=== PATIENT | male | born 1950 | race Caucasian/White ===

== ENCOUNTER 2016-09-04 14:04 | Emergency (ER) | payer MEDICARE, OTHER ==
[2016-09-04 14:40] LABS: Hematocrit 47.8 % (42.0-52.0); Hemoglobin 16.5 gm/dL (13.5-18.0); Mean Cell Volume 94.5 fl (78-100); Mean Corpuscular Hemoglobin 32.6 pg (27-31); Mean Corpuscular Hgb Conc 34.5 g/dl (32-36); Mean Platelet Volume 8.8 fl (6.0-9.5); Neutrophil # 7.5 K/mm3 (1.3-6.0); Platelet Count 264 K/mm3 (150-450); Red Blood Count 5.06 M/mm3 (4.7-6.0); Red Cell Distribution Width 13.3 % (11.5-14.0); White Blood Count 10.4 K/mm3 (4.0-10.5)
[2016-09-04 15:00] LABS: Albumin * 3.6 gm/dl (3.4-5.0); Anion Gap 19.1 mmol/L (6.8-13.8); Bilirubin, Total 0.7 mg/dL (0.0-1.1); Ca. Corrected For Albumin 9.2 mg/dL (8.4-10.2); Calcium * 9.2 mg/dL (7.9-10.9); Carbon Dioxide 22.2 mmol/L (24-32.6); Potassium 5.3 mmol/L (3.4-4.6); Total Protein 7.8 gm/dL (6.2-8.2); Troponin I 0.018 ng/ml (0.00-0.10)
[2016-09-04] MEDS ORDERED: ONDANSETRON HCL/PF 2 MG/ML VIAL IV ONE (15:50)
[2016-09-04] MEDS ORDERED: ONDANSETRON HCL/PF 2 MG/ML VIAL ONE (15:51)
[2016-09-04] MEDS ORDERED: FUROSEMIDE 10 MG/ML VIAL IV ONE (15:54)
[2016-09-04] MEDS ORDERED: FUROSEMIDE 10 MG/ML VIAL ONE (16:00)
[2016-09-04] MEDS ORDERED: traMADol HCL 50 MG TABLET PO ONE ×2 (17:41→17:49)
[2016-09-04] MEDS ORDERED: traMADol HCL 50 MG TABLET ONE ×2 (17:46→17:50)
--- NOTE | 2016-09-04 18:57 | ERNOTE ---
Dyspnea - Date Date of Service: 09/04/16 - General Time Seen by Provider: 09/04/16 14:25 Source: patient Exam Limitations: no limitations - Immun/Allergies/Home Medications Immunizations: IMMUNIZATION HX History of Influenza Vaccine Yes Hx Pneumococcal Vaccination Yes Allergies/Adverse Reactions: Allergies No Known Allergies Allergy (Verified 09/04/16 14:17) Home Medications: HOME MEDICATIONS Aspirin [Aspirin Chewable] 81 mg PO DAILY 05/09/16 [Last Taken Unknown] Atorvastatin Calcium [Lipitor] 80 mg PO DAILY 05/09/16 [Last Taken Unknown] Clopidogrel Bisulfate [Plavix] 75 mg PO DAILY 05/09/16 [Last Taken Unknown] Levothyroxine Sodium [Synthroid] 75 mcg PO DAILY 05/09/16 [Last Taken Unknown] Lisinopril [Zestril] 5 mg PO DAILY 05/09/16 [Last Taken Unknown] Metoprolol Tartrate [Lopressor] 100 mg PO BID 05/09/16 [Last Taken Unknown] Sulindac 200 mg PO BID PRN 05/09/16 [Last Taken Unknown] Terazosin HCl 2 mg PO HS 05/09/16 [Last Taken Unknown] Tramadol HCl [Rybix Odt] 50 mg PO QID PRN 05/09/16 [Last Taken Unknown] Venlafaxine HCl [Venlafaxine HCl ER] 225 mg PO DAILY 05/09/16 [Last Taken Unknown] - History of Present Illness Narrative: SOB increasing for the last week or so. he is not sure exactly how long this has been going on. No fever. SOB not at rest but noted with exertion. No acute onset. No CP. no leg swelling or PND. Has never had anything like this before. No abdominal pain. No calf pain. Severity: other - none at rest. Severe with exertion/ambulation. Initiating event: Reports: other - none Frequency of episodes: Reports: other - with exertion Modifying Factors - (Improves): Reports: rest Modifying Factors (Worsens): Reports: activity Associated Symptoms-Dyspnea: Denies: fever/chills, chest pain/discomfort, cough , leg/calf pain Prior Treatment: Denies: recently seen Review of Systems - Review of Systems Constitutional: Absent: fever Respiratory: Present: shortness of breath Cardiology: Absent: chest pain Gastrointestinal/Abdominal: Absent: abdominal pain Genitourinary: Absent: dysuria Neurological: Present: no symptoms reported All Other Systems: All systems neg except as marked - Patient's Past Medical History Patient History - Medical: Anxiety, Hypothyroidism Patient History - Cardiac/Respiratory: Hypertension, Hyperlipidemia Patient History - Cancer: No Hx of Cancer Patient History - Surgical Procedures: Coronary Bypass Surgery Patient History - Other: None - Social History Living Situations: alone Smoking Status: Heavy tobacco smoker Have you smoked in the past 12 months: Yes - Immunizations Hx Pneumococcal Vaccination: Yes History of Influenza Vaccine: Yes Physical Exam - Physical Exam General Appearance: Present: alert, no apparent distress Eye Exam: Normal inspection: bilateral, PERRL: bilateral Ears, Nose, Throat: Present: normal ENT inspection Neck: Present: normal inspection Respiratory: Present: no respiratory distress, normal breath sounds, lungs clear Cardiovascular/Chest: Present: regular rate, rhythm Gastrointestinal/Abdominal: Present: normal bowel sounds, nontender, nondistended, soft Back Exam: Absent: CVA tenderness (R), CVA tenderness (L) Extremity Exam: Present: other - No DVT findings or edema. no calf tendenress Neurological Exam: Absent: motor weakness Skin Exam: Absent: skin rash ED Progress - Results and Orders Patient's Lab Results:: I have reviewed the patient's lab results. - Vital Signs Patient's Vital Signs:: I have reviewed the patient's vital signs. Vital Signs: Vital Signs 09/04/16 09/04/16 09/04/16 14:13 14:23 15:03 Pulse Rate 66 66 65 Respiratory 19 14 Rate Blood Pressure 105/78 91/67 O2 Sat by Pulse 99 97 Oximetry 09/04/16 09/04/16 09/04/16 15:25 15:33 16:04 Pulse Rate 80 65 66 Respiratory 12 Rate Blood Pressure 96/60 98/61 O2 Sat by Pulse 82 L 98 Oximetry 09/04/16 09/04/16 16:16 18:34 Pulse Rate 68 65 Respiratory 13 16 Rate Blood Pressure 98/61 103/69 O2 Sat by Pulse 97 96 Oximetry - EKG EKG: NSR EKG read: Interp. by me EKG Comments: NSR rate 88. 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 No clear evidence of STEMI - X-Ray X-Ray #1 X-Ray: chest Interpretation: Reviewed by me X-ray Comments: I reviewed radiology report - Progress/Reassessment Chief Complaint: Dyspnea Progress Note-Subjective: 09/04/16 18:55 Patient Sx free at rest. New onset CHF, given lasix. elevated d-dimer but clinically unlikely to be PE, Cr too high for CT at this time. Also new nodules will need w/u. [facility] [place] [facility] for further evaluation and management. Departure Clinical Impression: Exertional shortness of breath, CHF (congestive heart failure) - Departure Condition: Fair
[2016-09-04 21:34] VITALS: BP 124/66
== END 2016-09-04 20:45 | disposition short-term general hospital (02) ==
LOC: ER 14:04
DX: I50.9 Heart failure, unspecified (principal); R06.02 Shortness of breath; F17.210 Nicotine dependence, cigarettes, uncomplicated

== ENCOUNTER 2016-09-25 17:36 | Emergency (ER) | payer MEDICARE, OTHER ==
--- OUTSIDE RECORDS SUMMARY | 2016-09-25 19:33 | XMS REPORT | Continuity of Care Document ---
:1950 Author Organization [facility] ([facility]) Address [address] [place] [address] Phone [phone] Care Team Providers Name Role Phone [facility] Primary Care Provider [phone] Source Comments This disclosure is being made pursuant to the Care Everywhere program, applicable federal and state laws, and may not contain all informaitonavailable regarding this patient.[facility] ([facility]) Active Allergies and Adverse Reactions No Known Allergies Current Medications Prescription Sig. Disp. Refills Start Date End Date Status traMADol 50 mg tablet Take 100 mg by Active mouth 4 times daily as needed. metoPROLol 100 mg tablet Take 1 Tab by 60 Tab 3 11/10/2011 Active mouth 2 times daily. Indications: cad sulindac 200 mg tablet Take 200 mg by Active mouth 2 times daily. aspirin 81 mg chewable Take 81 mg by Active tablet mouth daily. atorvastatin 80 mg tablet Take 80 mg by Active mouth daily. levothyroxine 75 mcg Take 75 mcg by Active tablet mouth every morning before breakfast. terazosin 2 mg capsule Take 2 mg by Active mouth at bedtime. venlafaxine 75 mg XR Take 225 mg by Active capsule mouth daily. mirtazapine 30 mg tablet Take 30 mg by Active mouth at bedtime. lisinopril 10 mg tablet Take 10 mg by Active mouth daily. clopidogrel 75 mg tablet Take 75 mg by Active mouth daily. furosemide 40 mg tablet Take 40 mg by Active mouth daily. cholecalciferol (VITAMIN Take 1,000 Units Active D3) 1,000 unit capsule by mouth daily. Active Problems Problem Noted Date Other specified anemias 04/16/2016 Other peripheral vascular disease(443.89) 04/16/2016 Carotid artery disease 11/06/2011 Overview: 70-79% right ICA stenosis on duplex 10/29/11 Current smoker 11/06/2011 Overview: 1 PPD X40 years Alcohol abuse 11/06/2011 Overview: Reports drinking 6 pack several times per week Arthritis 11/06/2011 CAD (coronary artery disease) 10/28/2011 Overview: CARDIOVASCULAR PROCEDURES CATH Cath:Elevated LVEDP Inferior STEMI with successful thrombolysis, but post infarct angina. Proximal and mid LCx culprit lesions S/P successful Synergy RAM[employer] Patent SELLERS and occluded SVG to RPDA. 04/16/2016 ECHO Echo:Low normal left ventricular systolic function. LV Ejection Fraction=50-55% (based on visual estimate). Basal inferior and inferolateral wall with hypokinesis Mild to moderate mitral regurgitation by Doppler. 04/16/2016 Echo:LV Ejection Fraction=30-35% (based on visual estimate). Basal inferior and inferolateral wall with hypokinesis 08/2016 [facility] HTN (hypertension) 10/28/2011 Hyperlipidemia 10/28/2011 Hx of CABG Overview: Cath 10/28/2011 [facility] with transfer to [place] for CABG Ischemic cardiomyopathy Myocardial infarction Resolved Problems Problem Noted Date Resolved Date ST elevation myocardial infarction (STEMI) of inferior wall, 04/16/201609/16 initial episode of care Chest pain 10/28/2011 09/16/2016 Most Recent Encounters Date Type Specialty Providers Description 09/25/2016 Telephone Cardiac Rehabilitation Pamela Jernigan MD 09/16/2016 Office Visit Heart and Vascular Pamela Jernigan MD Dx: Coronary artery disease involving chicken ranch coronary artery of chicken ranch heart with unstable angina pectoris (Primary Dx) Social History Tobacco Use Types Packs/Day Years Used Date Current Every Day Smoker Cigars 40 Tobacco Cessation:Ready to Quit: Yes; Counseling Given: Yes Comments: Alcohol Use Drinks/Week oz/Week Comments Yes Last Filed Vital Signs Vital Sign Reading Time Taken Blood Pressure 116/68 09/16/2016 2:48 PM RECOVERY ANALYST Pulse 72 09/16/2016 2:48 PM RECOVERY ANALYST Temperature 37.4 C (99.3 F) 04/18/2016 7:59 AM CDT Respiratory Rate 18 04/18/2016 7:59 AM CDT Height 1.727 m (5' 8") 09/16/2016 2:48 PM RECOVERY ANALYST Weight 72.757 kg (160 lb 6.4 oz) 09/16/2016 2:48 PM RECOVERY ANALYST Body Mass Index 24.39 09/16/2016 2:48 PM RECOVERY ANALYST Oxygen Saturation 97% 04/18/2016 7:59 AM CDT Plan of Care Date Type Specialty Providers Description 01/29/2017 Appointment Heart and Vascular Pamela Jernigan MD Chief Comp: Patient [address] [place] [address] Visit [phone] (Fax) Health Maintenance Due Date Last Done Comments HCV Screening 1950 Hepatitis B Vaccine (1 of 3 - Primary 1950 Series) Tdap Vaccine 01/16/1960 Td Vaccine 1967 Colonoscopy 1999 Prostate Cancer Screening 1999 Zoster Vaccine 2009 Pneumococcal Vaccine (1 of 2 - PCV13) 2014 Influenza Vaccine: Seasonal (#1) 03/10/2016 Lipid Disorder Screening 04/16/2021 04/16/2016, 10/29/2011, 10/29/2011 Results from Last 3 Months Not on file
[2016-09-25] MEDS ORDERED: NORMAL SALINE 1,000 ML IV ONE (19:39)
[2016-09-25 19:55] LABS: Hematocrit 39.7 % (42.0-52.0); Hemoglobin 13.5 gm/dL (13.5-18.0); Mean Cell Volume 95.4 fl (78-100); Mean Corpuscular Hemoglobin 32.5 pg (27-31); Mean Platelet Volume 9.3 fl (6.0-9.5); Platelet Count 230 K/mm3 (150-450); Red Blood Count 4.16 M/mm3 (4.7-6.0); Red Cell Distribution Width 13.2 % (11.5-14.0); White Blood Count 6.4 K/mm3 (4.0-10.5)
[2016-09-25 20:01] LABS: Total Cells Counted 100
[2016-09-25 20:09] LABS: Albumin * 3.3 gm/dl (3.4-5.0); Anion Gap 15.1 mmol/L (6.8-13.8); BUN/Creatinine Ratio 15.5 (9.0-21.6); Bilirubin, Total 0.5 mg/dL (0.0-1.1); Ca. Corrected For Albumin 9.1 mg/dL (8.4-10.2); Calcium * 8.9 mg/dL (7.9-10.9); Carbon Dioxide 27.6 mmol/L (24-32.6); Potassium 3.7 mmol/L (3.4-4.6); Total Protein 7.4 gm/dL (6.2-8.2)
[2016-09-25 20:46] LABS: Eosinophil 4 % (0-3); Lymphocyte 24 % (20-51); Monocyte 8 % (0-9); Neutrophil 64 % (42-75); Neutrophil # 4.1 K/mm3 (1.3-6.0); Platelet Estimate Normal (NORMAL); RBC Morphology Normal (NORMAL); Toxic Granulation 1+
--- NOTE | 2016-09-25 21:14 | ERNOTE ---
Dizziness ER Record Date of Service: 09/25/16 Time Seen by Provider: 09/25/16 19:21 Source: patient, family - DAUGHTER IN LAW Immunizations: IMMUNIZATION HX Immunizations Up to Date Yes History of Influenza Vaccine Yes Hx Pneumococcal Vaccination Yes Allergies/Adverse Reactions: Allergies Allergy/AdvReac Type Severity Reaction Status Date / Time No Known Allergies Allergy Verified 09/04/16 14:17 Home Medications: HOME MEDICATIONS Aspirin [Aspirin Chewable] 81 mg PO DAILY 05/09/16 [Last Taken Unknown] Atorvastatin Calcium [Lipitor] 80 mg PO DAILY 05/09/16 [Last Taken Unknown] Clopidogrel Bisulfate [Plavix] 75 mg PO DAILY 05/09/16 [Last Taken Unknown] Levothyroxine Sodium [Synthroid] 75 mcg PO DAILY 05/09/16 [Last Taken Unknown] Lisinopril [Zestril] 10 mg PO DAILY 05/09/16 [Last Taken Unknown] Sulindac 200 mg PO BID PRN 05/09/16 [Last Taken Unknown] Terazosin HCl 2 mg PO HS 05/09/16 [Last Taken Unknown] Tramadol HCl [Rybix Odt] 50 mg PO QID PRN 05/09/16 [Last Taken Unknown] Venlafaxine HCl [Venlafaxine HCl ER] 225 mg PO DAILY 05/09/16 [Last Taken Unknown] Cholecalciferol [Vitamin D] 1,000 unit PO DAILY 09/25/16 [Last Taken Unknown] Furosemide [Lasix] 40 mg PO DAILY 09/25/16 [Last Taken Unknown] Mirtazapine [Remeron] 30 mg PO HS 09/25/16 [Last Taken Unknown] - History of Present Illness Narrative: PT IS HERE FOR FREQUENT EPISODES OF DIZZINESS AND LIGHTHEADEDNESS PARTICULARLY WHEN HE STANDS UP. HE HAS HAD THIS SINCE THE PAST WEEK. HE HAS HAD PROBLEMS OF LOW BLOOD PRESSURE GOING BACK TO 10 DAYS AGO WHEN HE SAW HIS PCP AND THE D/C'D HIS METOPROLOL . 3 WEEKS AGO HE WAS AT THE [facility] AND HAD AN EPISODE OF CHF AND LASIX WAS ADDED TO HIS DAILY MEDS . HE HAS HAD COLD SX'S FOR THE PAST WEEK AND WAS TAKING AN UNKNOWN OTC COUGH/COLD MED. Date (Duration): 09/18/16 Timing and Duration: gradual onset, still present Severity: max: moderate Severity: currently: gone Associated Symptoms: Present: light headedness Usually:: Present: walks w/o assistance Modifying Factors - (Worsens): Reports: standing position Prior Treament: Reports: recently seen, treated by physician, recently hospitalized Review of Systems - Review of Systems Constitutional: Present: See HPI EYE: Present: no symptoms reported ENT: Present: nose congestion, nasal drainage Respiratory: Present: no symptoms reported Cardiology: Present: no symptoms reported Gastrointestinal/Abdominal: Present: no symptoms reported Genitourinary: Present: no symptoms reported Musculoskeletal: Present: no symptoms reported Skin: Present: no symptoms reported Neurological: Present: dizziness/light-headedness Endocrine: Present: no symptoms reported Hematologic/Lymphatic: Present: no symptoms reported Psych: Present: no symptoms reported All Other Systems: All systems neg except as marked - Patient's Past Medical History Patient History - Medical: Anxiety, Hypothyroidism Patient History - Cardiac/Respiratory: Coronary Heart Disease, CHF, Hypertension , Hyperlipidemia Patient History - Cancer: No Hx of Cancer Patient History - Surgical Procedures: Coronary Bypass Surgery Patient History - Other: None - Social History Living Situations: alone Psych History: No pertinent hx Smoking Status: Current every day smoker Have you smoked in the past 12 months: Yes Alcohol Use: occasionally Drug Use: none - Immunizations Immunizations Up to Date: Yes Hx Pneumococcal Vaccination: Yes History of Influenza Vaccine: Yes Physical Exam - Physical Exam General Appearance: Present: wd/wn, alert, no apparent distress Ears, Nose, Throat: Present: hearing grossly normal, nasal congestion. Absent: pharyngeal erythema Neck: Present: normal inspection, nontender. Absent: carotid bruit, lymphadenopathy (L) Respiratory: Present: no respiratory distress, normal breath sounds, no accessory muscle use, chest nontender, lungs clear Cardiovascular/Chest: Present: regular rate, rhythm, no murmur, normal peripheral pulses Gastrointestinal/Abdominal: Present: normal bowel sounds, nontender, nondistended, soft, no organomegaly Extremity Exam: Present: normal inspection Neurological Exam: Present: alert, oriented, normal mood/affect, no motor/ sensory deficits Skin Exam: Present: normal color, warm/dry Lymphatic Exam: Present: no adenopathy ED Progress - Date and Time Seen: Date and Time: 09/25/16 21:49 AFTER FLUIDS PT HAD REPEAT ORTHOSTATICS AND THIS TIME THOUGH THERE WAS A MILD HEART RATE ELEVATION HE HAD NO SYMPTOMS OF DIZZINESS. - Results and Orders Patient's Lab Results:: I have reviewed the patient's lab results. - Vital Signs Patient's Vital Signs:: I have reviewed the patient's vital signs. Vital Signs: Vital Signs 09/25/16 09/25/16 09/25/16 17:56 18:47 19:11 Temperature 35.7 C L Pulse Rate 94 86 111 H Respiratory 18 Rate Blood Pressure 84/57 103/64 O2 Sat by Pulse 97 Oximetry 09/25/16 19:57 Temperature Pulse Rate 90 Respiratory 15 Rate Blood Pressure 112/67 O2 Sat by Pulse 94 Oximetry HE HAD INTIAL LOW BP AND WHEN ORTHOSTATICS WERE CHECKED SHOWED HR ELVATION AND MILD BP DROP BUT NO FAINTING. - EKG EKG: NSR - ON MONITOR THERE IS NO SIGN OF ABNORMAL RHYTHM - Progress/Reassessment Chief Complaint: Dizziness Plan - Plan Plan: PT WAS GIVEN 1 LITER OF IV FLUID WHILE WAITING ON LABS , WHICH WERE NORMAL. Departure Clinical Impression: Orthostatic lightheadedness - Departure Disposition: Home Follow Up Needed Condition: Good Instructions: Orthostatic Hypotension Additional Instructions: DECREASE THE LASIX TO 20 MG ONCE A DAY AND MAKE ARRANGEMENTS TO FOLLOW UP WITH YOUR PRIMARY CARE DOCTOR IN 3-4 DAYS. WHEN YOU DO STAND FROM A LAYING OR SITTING POSITION DO SO SLOWLY AND BE SURE TO STAY BY THE CHAIR OR BEEN FOR SEVERAL SECONDS SO THAT YOU CAN SIT OR LAY BACK DOWN INSTYEAD OF RISKING FAINTING AND FALLING. YOUR DOCTOR MAY SUGGEST EVEN FURTHER MEDICATION CHANGES DEPENDING ON HOW YOU ARE DOING. Referrals: Pamela Jernigan MD [Primary Care Provider] -
[2016-09-25 21:24] VITALS: BP 112/70
== END 2016-09-25 22:14 | disposition home or self-care (01) ==
LOC: ER 17:36
DX: I95.2 Hypotension due to drugs (principal); T50.1X5A Adverse effect of loop [high-ceiling] diuretics, initial encounter; Y92.9 Unspecified place or not applicable; Z72.0 Tobacco use; F41.9 Anxiety disorder, unspecified; I11.0 Hypertensive heart disease with heart failure; E03.9 Hypothyroidism, unspecified; E78.5 Hyperlipidemia, unspecified